=== PATIENT | female | born 1945 | race Asian ===

== ENCOUNTER 2019-01-06 07:00 | Day surgery (SDC) | payer OTHER ==
[2019-01-05 09:07] VITALS: BMI 19.7
[2019-01-06 09:04] VITALS: TEMP 97.8
[2019-01-06 09:32] VITALS: PULSE 60
[2019-01-06 09:51] VITALS: BP 118/48
--- NOTE | 2019-01-09 17:21 | PATH ---
Surgical Pathology Report Patient Name: JUDD CHAVEZ [facility]. Rec. #: [id number] /Age/Gender: 1945 (Age: 73) / F Account: [id number] Location: U-ENDOSCOPY Taken: 01/06/2019 Received: 01/06/2019 Reported: 01/09/2019 Physicians: Apollo Steele M.D. Specimen(s) Received A: DUODENUM, SECOND PORTION AND BULB B: ANTRUM C: GE JUNCTION D: ASCENDING COLON POLYP E: MID-TRASNVERSE COLON POLYP Clinical History Early satiety, change in bowel habits Postoperative diagnosis: Erosive antral gastritis, colon polyp, diverticulosis Final Diagnosis A. DUODENUM, SECOND PORTION AND BULB, BIOPSY: DUODENAL MUCOSA WITHOUT SIGNIFICANT PATHOLOGIC FINDINGS. B. STOMACH, ANTRUM, BIOPSY: GASTRIC ANTRAL MUCOSA WITH MILD CHRONIC GASTRITIS. IMMUNOHISTOCHEMICAL STAIN FOR H. PYLORI IS NEGATIVE. C. GE JUNCTION, BIOPSY: SQUAMOCOLUMNAR MUCOSA WITH MODERATE ACUTE AND CHRONIC INFLAMMATION AND CHANGES OF MODERATE REFLUX ESOPHAGITIS. NO INTESTINAL METAPLASIA OR DYSPLASIA IDENTIFIED. D. ASCENDING COLON, POLYP, BIOPSY: SESSILE SERRATED POLYP E. MID TRANSVERSE COLON, POLYP, BIOPSY: HYPERPLASTIC POLYP. Electronically Signed Radha Park M.D. Gross Description A. Received in formalin, labeled "second portion and bulb of duodenum" are 5 castro, irregular portions of soft tissue ranging from 0.2-0.4 cm. in greatest dimension. The specimens are submitted in toto in one cassette. B. Received in formalin, labeled "antrum biopsy" are 3 castro, irregular portions of soft tissue ranging from 0.2-0.3 cm. in greatest dimension. The specimens are submitted in toto in one cassette. C. Received in formalin, labeled "GE junction biopsy" are 2 castro, irregular portions of soft tissue averaging 0.4 cm. in greatest dimension. The specimens are submitted in toto in one cassette. D. Received in formalin, labeled "ascending colon polyp biopsy" are 5 castro, irregular portions of soft tissue ranging from 0.1-0.3 cm. in greatest dimension. The specimens are submitted in toto in one cassette. E. Received in formalin, labeled "mid transverse colon polyp" is a castro, irregular portion of soft tissue measuring 0.3 cm. in greatest dimension. The specimen is submitted in toto in one cassette. DL01/06/2019 saudi01/06/2019
== END 2019-01-06 10:27 | disposition home or self-care (01) ==
LOC: JASU-ENDO 07:00
PROVIDERS: ATTEND Internal Medicine Gastroenterology
PROC: 0DBL8ZX Excision of Transverse Colon, Via Natural or Artificial Opening Endoscopic, Diagnostic (ICD-10-PCS; 2019-01-06)
PROC: 0DB48ZX Excision of Esophagogastric Junction, Via Natural or Artificial Opening Endoscopic, Diagnostic (ICD-10-PCS; 2019-01-06)
PROC: 0DB68ZX Excision of Stomach, Via Natural or Artificial Opening Endoscopic, Diagnostic (ICD-10-PCS; 2019-01-06)
PROC: 0DBK8ZX Excision of Ascending Colon, Via Natural or Artificial Opening Endoscopic, Diagnostic (ICD-10-PCS; principal; 2019-01-06 08:00)
DX: K29.00 Acute gastritis without bleeding (principal); D12.2 Benign neoplasm of ascending colon; D12.3 Benign neoplasm of transverse colon; K64.8 Other hemorrhoids; K57.30 Diverticulosis of large intestine without perforation or abscess without bleeding; K44.9 Diaphragmatic hernia without obstruction or gangrene; I10 Essential (primary) hypertension; E11.9 Type 2 diabetes mellitus without complications; G20 Parkinson's disease
CPT/HCPCS: 82962; 88305-TC; 88342-TC

== ENCOUNTER 2019-04-07 17:27 | Inpatient (IN) | payer OTHER ==
--- NOTE | 2019-04-07 17:38 | PDOC ---
Rapid Medical Evaluation Chief Complaint: Blood Pressure Problem Time Seen by Provider: 04/07/19 17:35 Medical Evaluation: Allergies Allergy/AdvReac Type Severity Reaction Status Date / Time No Known Allergies Allergy Verified 01/05/19 09:08 04/07/19 17:36 73 year old female with headache, dizziness and high blood pressure. Dr. Trejo ( cardiology) PCP : Dr. ackerman A: high blood pressure P; none PMHX: irregular heart rate; hypertension Discharge Disposition - Diagnosis High blood pressure Qualifiers: Hypertension type: unspecified Qualified Code(s): I10 - Essential (primary) hypertension - Referrals - Patient Instructions - Post Discharge Activity
[2019-04-07] MEDS ORDERED: LABETALOL HCL 5 MG/1 ML (100MG/20 ML VIAL) IVPUSH ONE (18:33)
--- NOTE | 2019-04-07 18:43 | PDOC ---
History of Present Illness - General Chief Complaint: Blood Pressure Problem Stated Complaint: HBP Time Seen by Provider: 04/07/19 17:35 History Source: Patient, Old Records Exam Limitations: No Limitations - History of Present Illness Initial Comments: 04/07/19 18:39 HISTORY OF PRESENT ILLNESS: 73-year-old woman with past medical history of hypertension, diabetes, glaucoma, Parkinson's, A. fib (not on AC) who presents emergency department for evaluation of elevated blood pressure, headache and chest pressure. Patient reports her elevated blood pressure is an ongoing issue for which she saw her risk tech on 04/01 was recommended to take metoprolol 25 mg orally as needed for elevated blood pressure. Patient has been having the symptoms in her chest since evaluated by her risk tech. She reports the headache started today. Patient reports a poorly localized headache rated 6/10 throughout the day today. She denies any blurry vision, nausea, vomiting, shortness of breath. Patient does have intermittent episodes of lightheadedness. She denies fevers/chills. No recent travel or sick contacts. PAST MEDICAL HISTORY: See HPI SURGICAL HISTORY: Denies ALLERGIES: No known drug allergies REVIEW OF SYSTEMS General/Constitutional: Denies fever or chills. Denies weakness, weight change. HEENT: Denies change in vision. Denies ear pain or discharge. Denies sore throat. Cardiovascular: See HPI Respiratory: Denies cough, wheezing, or hemoptysis. Gastrointestinal: Denies nausea, vomiting, diarrhea or constipation. Denies rectal bleeding. Genitourinary: Denies dysuria, frequency, or change in urination. Musculoskeletal: Denies joint or muscle swelling or pain. Denies neck or back pain. Skin and breasts: Denies rash or easy bruising. Neurologic: See HPI Psychiatric: Denies depression or anxiety. Endocrine: Denies increased thirst. Denies abnormal weight change. Hematologic/Lymphatic: Denies anemia, easy bleeding, or history of blood clots. Allergic/Immunologic: Denies hives or skin allergy. Denies latex allergy. PHYSICAL EXAM General Appearance: Well-appearing, appropriately dressed. No apparent distress , no intoxication. HEENT: EOMI, PERRLA, normal ENT inspection, normal voice, TMs normal, pharynx normal. No conjunctival pallor. No photophobia, scleral icterus. Neck: Supple. Trachea midline. No tenderness, rigidity, carotid bruit, stridor , lymphadenopathy, or thyromegaly. Respiratory/Chest: Lungs CTAB. No shortness of breath, chest tenderness, respiratory distress, accessory muscle use. No crackles, rales, rhonchi, stridor , wheezing, dullness Cardiovascular: RRR. S1, S2. No JVD, murmur, bradycardia, tachycardia. No pedal edema present. Vascular Pulses: Dorsalis-Pedis (R): 2+, Dorsalis-Pedis (L): 2+ Gastrointestinal/Abdominal: Normal bowel sounds. Abdomen soft, non-distended. No tenderness or rebound tenderness. No organomegaly, pulsatile mass, guarding, hernia, hepatomegaly, splenomegaly. Lymphatic: No adenopathy, tenderness. Musculoskeletal/Extremities: Normal inspection. FROM of all extremities, normal capillary refill. Pelvis Stable. No CVA tenderness. No tenderness to extremities, pedal edema, swelling, erythema or deformity. Integumentary: Appropriate color, dry, warm. No cyanosis, erythema, jaundice or rash Neurologic: entertainment manager II-XII intact. Fully oriented, alert. Appropriate mood/affect. Motor strength 5/5. No appreciable EOM palsy, facial droop or sensory deficit. Past History - Past Medical History Allergies/Adverse Reactions: Allergies Allergy/AdvReac Type Severity Reaction Status Date / Time No Known Allergies Allergy Verified 01/05/19 09:08 Home Medications: Ambulatory Orders Ascorbate Calcium [Vitamin C] 500 mg PO DAILY 01/05/19 Aspirin [Ecotrin] 81 mg PO DAILY 01/05/19 Bimatoprost [Lumigan] 1 drop OD DAILY 01/05/19 Brimonidine Tartrate/Timolol [Combigan 0.2%-0.5% Eye Drops] 5 ml OD BID Calcium Carbonate/Vitamin D3 [Calcium 500 mg-Vit D3 600 Unit] 1,200 mcg PO DAILY 01/05/19 Carbidopa/Levodopa *Cr* 50/200 [Sinemet *Cr* 50/200 -] 1 combo PO QID 01/05/19 Gabapentin [Neurontin -] 300 mg PO HS 01/05/19 Glipizide [Glucotrol -] 5 mg PO TID 01/05/19 Insulin Detemir [Levemir Flextouch] 10 unit SQ HS 01/05/19 Insulin Lispro [Humalog] 100 unit SQ TID 01/05/19 Metoprolol Succinate 25 mg PO PRN 01/05/19 Multivitamin [Multiple Vitamins] 1 each PO DAILY 01/05/19 [place]-3 Fatty Acids/Fish Oil [Fish Oil 1,000 mg Capsule] 1 each PO DAILY Pramipexole Di-HCl [Pramipexole Dihydrochloride] 0.75 mg PO HS 01/05/19 Pravastatin Sodium 10 mg PO HS 01/05/19 metFORMIN HCL [Metformin HCl ER] 500 mg PO BID 01/05/19 Famotidine [Pepcid] 40 mg PO DAILY #30 tablet 01/06/19 Losartan Potassium 50 mg PO DAILY 04/08/19 traZODone HCL [Trazodone HCl] 50 mg PO HS 04/08/19 Metoprolol Succinate 25 mg PO DAILY #60 tab.er.24h 04/10/19 Nitroglycerin Sublingual [Nitrostat -] 0.3 mg SL ONCE #5 btl 04/10/19 Cardiac Disorders: Yes (APC) Diabetes: Yes (IDDM) HTN: Yes Hypercholesterolemia: Yes Thyroid Disease: Yes (THYROIDMEGALY) - Surgical History Neurologic Surgery: Yes (LUMBAR LAMINECTOMY) - Psycho Social/Smoking Cessation Hx Smoking History: Never smoked Have you smoked in the past 12 months: No Hx Alcohol Use: No Drug/Substance Use Hx: No Substance Use Type: None Hx Substance Use Treatment: No *Physical Exam - Vital Signs Last Vital Signs Temp Pulse Resp BP Pulse Ox 97.8 F 92 H 16 199/81 H 100 04/07/19 17:34 04/07/19 17:34 04/07/19 17:34 04/07/19 17:34 04/07/19 17:34 ED Treatment Course - LABORATORY CBC & Chemistry Diagram: 04/10/19 05:55 04/10/19 05:55 - RADIOLOGY Radiology Studies Ordered: Category Date Time Status CHEST PA & LAT [RAD] Stat Radiology 04/07/19 18:33 Ordered Medical Decision Making - Medical Decision Making 04/07/19 18:43 A/P: 73-year-old woman with chest pressure, elevated blood pressure and lightheadedness for 7 days Physical exam is unremarkable. Patient reports she took metoprolol 25 mg at approximately 12:00 noon. Upon arrival patient's blood pressure is 199/81 with a heart rate of 92. Symptoms patient experiencing likely due to elevated blood pressure. Given patient's age and history I will do an EKG with cardiac work-up with one troponin being sufficient if it is negative. Labetalol 10 mg IV push TSH Reassess 04/07/19 21:46 Patient noted to have troponin I 1.25. Additionally patient's beta natruretic peptide 774. Chest x-ray as read by me. Left angle sharp. Cardiac silhouette is within normal limits. Lung martinez clear without infiltrates or consolidations. No significant change from study performed 12/12/2014. Patient continues to report heaviness in her chest but denies any pain. Aspirin 325 mg orally now Guaiac Heparin drip repeat EKG Admission 04/07/19 22:04 04/07/19 22:26 Case has been discussed with Dr. Humphrey from Dr. Trejo's group who recommends admission and will follow here at [facility] tomorrow as a consult. Rec hold Plavix at this time. Case has been discussed with the hospitalist service who will admit patient to medicine and continue to care. And cardiology follow-up in the morning. 04/08/19 01:52 Discharge - Discharge Information Problems reviewed: Yes Clinical Impression/Diagnosis: NSTEMI (non-ST elevated myocardial infarction), Hyponatremia High blood pressure Qualifiers: Hypertension type: unspecified Qualified Code(s): I10 - Essential (primary) hypertension Condition: Improved Disposition: HOME - Admission Yes - Follow up/Referral - Patient Discharge Instructions - Post Discharge Activity
[2019-04-07] MEDS ORDERED: LABETALOL HCL 5 MG/1 ML (200MG/40ML VIAL) IVPB ONE (19:49)
[2019-04-07 20:51] LABS: BASO % 0.3 % (0-2.0); EOS % 0.4 % (0-4.5); HEMATOCRIT 41.9 % (32.4-45.2); HEMOGLOBIN 14.2 GM/dL (10.7-15.3); LYMPH % 24.3 % (8-40); MCH 28.6 pg (25.7-33.7); MCHC 33.8 g/dl (32.0-36.0); MEAN CELL VOLUME 84.7 fl (80-96); MEAN PLT VOLUME 8.4 fl (7.5-11.1); MONO % 6.2 % (3.8-10.2); NEUT % 68.8 % (42.8-82.8); PLATELET COUNT 282 K/MM3 (134-434); RBC 4.94 M/mm3 (3.60-5.2); RDW 13.3 % (11.6-15.6)
[2019-04-07 21:02] LABS: INR 1.08 (0.83-1.09); PROTHROMBIN TIME (PATIENT) 12.7 SEC (9.7-13.0)
[2019-04-07 21:05] LABS: ACTIVATED PTT 34.4 SECONDS (25.2-36.5)
[2019-04-07 21:20] LABS: N-TERMINAL BNP 774.7 pg/ml (5-125)
[2019-04-07 21:24] LABS: ALBUMIN 4.2 g/dl (3.4-5.0); BILIRUBIN,TOTAL 0.5 mg/dL (0.2-1); BLOOD UREA NITROGEN 15.7 mg/dL (7-18); CALCIUM 9.4 mg/dL (8.5-10.1); CREATININE 0.7 mg/dL (0.55-1.3); MAGNESIUM 1.7 mg/dL (1.8-2.4); POTASSIUM 4.3 mmol/L (3.5-5.1); TOT PROT 7.7 g/dl (6.4-8.2)
[2019-04-07] MEDS ORDERED: HEPARIN NA (PORCINE) 5,000 UNITS/ML 1ML VIAL IVPUSH PRN ×2 (21:43)
[2019-04-07] MEDS ORDERED: ASPIRIN 325 MG ENTERIC COATED TABLET (FP) PO ONE (21:43)
[2019-04-07] MEDS ORDERED: HEPARIN NA (PORCINE) 5,000 UNITS/ML 1ML VIAL IVPUSH ONE (21:44)
[2019-04-07] MEDS ORDERED: HEPARIN SOD,PORK IN 0.45% NACL 25,000 UNIT/500 ML INFUS.BAG IVPB SCH (21:45)
[2019-04-07] MEDS ORDERED: HEPARIN NA (PORCINE) 5,000 UNITS/ML 1ML VIAL ONE (22:17)
[2019-04-07] MEDS ORDERED: ASPIRIN 325 MG ENTERIC COATED TABLET (FP) ONE (22:17)
[2019-04-07] MEDS ORDERED: FAMOTIDINE 20 MG TABLET PO ONE (23:30)
[2019-04-07] MEDS ORDERED: FAMOTIDINE 20 MG TABLET ONE (23:37)
[2019-04-07 23:49] LABS: EPI CELLS 0.4 /HPF (0-5/HPF); HYALINE CASTS 0 /lpf (0-8); URINE APPEARANCE CLEAR; URINE BACTERIA 15.3 /hpf (NEGATIVE); URINE BILIRUBIN NEGATIVE (NEGATIVE); URINE COLOR YELLOW; URINE GLUCOSE (UA) 1+ (NEGATIVE); URINE KETONE NEGATIVE (NEGATIVE); URINE LEUK ESTERASE NEGATIVE (NEGATIVE); URINE NITRITE NEGATIVE (NEGATIVE); URINE PROTEIN 1+ (NEGATIVE); URINE RBC 4 /hpf (0-4); URINE UROBILINOGEN 0.2 mg/dL (0.2-1.0); URINE WBC 1 /hpf (0-5)
[2019-04-08] MEDS ORDERED: CLOPIDOGREL BISULFATE 300 MG TABLET PO ONE (00:07)
[2019-04-08] MEDS ORDERED: METOPROLOL TARTRATE 25 MG TABLET (FP) PO ONE (00:09)
[2019-04-08] MEDS: metoPROLOL SUCCINATE 25 MG TAB.SR.24H (FP) PO SCH ×2 (00:28→10:15)
--- NOTE | 2019-04-08 00:29 | HP ---
CHIEF COMPLAINT: Chest tightness, headaches and HTN PCP: Dr. Ryder HISTORY OF PRESENT ILLNESS: 73 y/o F, pmh of hypertension, diabetes, glaucoma, Parkinson's, A. fib (not on AC), GERD, presents to the ED with chest tightness, headaches and elevated BP 199/85 w/ HR of 92. As per pt, she was at home when she began to experience severe, non-radiating chest tightness, headaches and palpitations. She reports that she was with her mutuel department manager (austen Portillo) few days ago who added metoprolol 25 to her medication regime and increased her dose of Losartan to 50mg. She believes the medication changed caused her symptoms. In the ED, she was HTN and her BP was normalized after labetolol 10 mg. Cardiology was consulted and they agreed that pt be admitted and watched overnight. Pt has had recent stress tests but she is unsure of the results. Her ECHO in the past has been normal. She denies f/c/n/v/d/sob, cp, abdominal pain, cough. ER course was notable for: (1)CXR- pending (2)Trop 1.25>1.37 (3)BNP 774.7 Recent Travel: denies PAST MEDICAL HISTORY: hypertension, diabetes, glaucoma, Parkinson's, A. fib (not on AC), GERD, denies [place], strokes PAST SURGICAL HISTORY: denies Social History: Smoking: Denies Alcohol: Denies Drugs: Denies Allergies No Known Allergies Allergy (Verified 01/05/19 09:08) HOME MEDICATIONS: Home Medications Medication Instructions Recorded Ascorbate Calcium [Vitamin C] 500 mg PO DAILY 01/05/19 Aspirin [Ecotrin] 81 mg PO DAILY 01/05/19 Bimatoprost [Lumigan] 1 drop IO DAILY 01/05/19 Brimonidine Tartrate/Timolol 5 ml OP BID 01/05/19 [Combigan 0.2%-0.5% Eye Drops] Calcium Carbonate/Vitamin D3 1 tab PO DAILY 01/05/19 [Calcium 500 mg-Vit D3 600 Unit] Carbidopa/Levodopa *Cr* 50/200 1 combo PO QID 01/05/19 [Sinemet *Cr* 50/200 -] Gabapentin [Neurontin -] 300 mg PO HS 01/05/19 Glipizide [Glucotrol -] 5 mg PO TID 01/05/19 Insulin Detemir [Levemir Flextouch] 100 unit SQ HS 01/05/19 Insulin Lispro [Humalog] 100 unit SQ TID 01/05/19 Metoprolol Succinate 25 mg PO PRN 01/05/19 Multivitamin [Multiple Vitamins] 1 each PO DAILY 01/05/19 [place]-3 Fatty Acids/Fish Oil [Fish 1 each PO DAILY 01/05/19 Oil 1,000 mg Capsule] Polyethylene Glycol 3350 [Miralax 17 gm PO DAILY 01/05/19 119 gm Btl -] Pramipexole Di-HCl [Pramipexole 0.75 mg PO HS 01/05/19 Dihydrochloride] Pravastatin Sodium 10 mg PO HS 01/05/19 metFORMIN HCL [Metformin HCl ER] 500 mg PO BID 01/05/19 Famotidine [Pepcid -] 40 mg PO DAILY #90 tablet 01/06/19 Famotidine [Pepcid] 40 mg PO DAILY #30 tablet 01/06/19 REVIEW OF SYSTEMS CONSTITUTIONAL: Absent: fever, chills, diaphoresis, loss of appetite, weight change HEENT: Absent: rhinorrhea, ear pain, eye pain, visual changes CARDIOVASCULAR: Admits: Chest tightness Absent: chest pain, syncope, palpitations, peripheral edema RESPIRATORY: Absent: cough, shortness of breath, orthopnea, wheezing, stridor, hemoptysis GASTROINTESTINAL: Absent: abdominal pain, nausea, vomiting, diarrhea, constipation, melena, hematochezia GENITOURINARY: Absent: dysuria, frequency, flank pain, genital pain NEUROLOGIC: Absent: headache, focal weakness or paresthesias, dizziness, unsteady gait, seizure, mental status changes, bladder or bowel incontinence PHYSICAL EXAMINATION Vital Signs - 24 hr Last Vital Signs Temp Pulse Resp BP Pulse Ox 97.4 F L 76 15 135/73 100 04/07/19 19:25 04/08/19 00:04 04/08/19 00:04 04/08/19 00:04 04/08/19 00:04 GENERAL: Awake, alert, and fully oriented, in no acute distress. EYES: Pupils equal, round and reactive to light, conjunctiva clear. No lid lag. EARS, NOSE, THROAT: Oropharynx clear without exudates. Moist mucous membranes. NECK: Normal range of motion, supple without lymphadenopathy, JVD, or masses. LUNGS: Breath sounds equal, clear to auscultation bilaterally. No wheezes, and no crackles. HEART: Regular rate and rhythm, normal S1 and S2 without murmur, rub or gallop. ABDOMEN: Soft, nontender, not distended, normoactive bowel sounds, no guarding, no rebound, no masses. UPPER EXTREMITIES: 2+ pulses, No cyanosis. No clubbing. No peripheral edema. LOWER EXTREMITIES: 2+ pulses, No calf tenderness. No peripheral edema. NEUROLOGICAL: Cranial nerves II-XII intact. SKIN: Warm, dry, normal turgor, Laboratory Results - last 24 hr CBC,CMP WBC 13.0 K/mm3 (4.0-10.0) H 04/07/19 20:20 RBC 4.94 M/mm3 (3.60-5.2) 04/07/19 20:20 Hgb 14.2 GM/dL (10.7-15.3) 04/07/19 20:20 Hct 41.9 % (32.4-45.2) 04/07/19 20:20 MCV 84.7 fl (80-96) 04/07/19 20:20 MCH 28.6 pg (25.7-33.7) 04/07/19 20:20 MCHC 33.8 g/dl (32.0-36.0) 04/07/19 20:20 RDW 13.3 % (11.6-15.6) 04/07/19 20:20 Plt Count 282 K/MM3 (134-434) 04/07/19 20:20 MPV 8.4 fl (7.5-11.1) 04/07/19 20:20 Absolute Neuts (auto) 9.0 K/mm3 (1.5-8.0) H 04/07/19 20:20 Neutrophils % 68.8 % (42.8-82.8) 04/07/19 20:20 Lymphocytes % 24.3 % (8-40) 04/07/19 20:20 Monocytes % 6.2 % (3.8-10.2) 04/07/19 20:20 Eosinophils % 0.4 % (0-4.5) 04/07/19 20:20 Basophils % 0.3 % (0-2.0) 04/07/19 20:20 Nucleated RBC % 0 % (0-0) 04/07/19 20:20 Sodium 128 mmol/L (136-145) L 04/07/19 18:33 Potassium 4.3 mmol/L (3.5-5.1) 04/07/19 18:33 Chloride 88 mmol/L (98-107) L 04/07/19 18:33 Carbon Dioxide 29 mmol/L (21-32) 04/07/19 18:33 Anion Gap 11 MMOL/L (8-16) 04/07/19 18:33 BUN 15.7 mg/dL (7-18) 04/07/19 18:33 Creatinine 0.7 mg/dL (0.55-1.3) 04/07/19 18:33 Est GFR (CKD-EPI)AfAm 100.32 04/07/19 18:33 Est GFR (CKD-EPI)NonAf 86.56 04/07/19 18:33 POC Glucometer 211 UNITS (80-120) 04/07/19 20:07 Random Glucose 213 mg/dL (74-106) H 04/07/19 18:33 Calcium 9.4 mg/dL (8.5-10.1) 04/07/19 18:33 Magnesium 1.7 mg/dL (1.8-2.4) L 04/07/19 18:33 Total Bilirubin 0.5 mg/dL (0.2-1) 04/07/19 18:33 AST 23 U/L (15-37) 04/07/19 18:33 ALT 8 U/L (13-61) L 04/07/19 18:33 Alkaline Phosphatase 91 U/L (45-117) 04/07/19 18:33 Creatine Kinase 132 U/L (26-192) 04/07/19 18:33 Troponin I 1.37 ng/ml (0.00-0.05) H* 04/07/19 22:53 B-Natriuretic Peptide 774.7 pg/ml (5-125) H 04/07/19 18:33 Total Protein 7.7 g/dl (6.4-8.2) 04/07/19 18:33 Albumin 4.2 g/dl (3.4-5.0) 04/07/19 18:33 TSH 2.82 uIU/ml (0.358-3.74) 04/07/19 18:33 ASSESSMENT/PLAN: 73 y/o F, pmh of hypertension, diabetes, glaucoma, Parkinson's, A. fib (not on AC), GERD, presents to the ED with chest tightness, headaches and elevated BP 199/85 w/ HR of 92 admitted for chest pain, HTN, and r/u ACS #Atypical chest pain likely 2/2 to heart strain from HTN and A-fib with RVR R/o ACS Trops elevated Trop 1.25>1.37 R/p trops ordered Lipids, TSH EKG: NSR, LAE, no ST changes, no TWI BNP elevated 774.7 likely 2/2 to demand, no signs of CHF Discussed with Cardiology- recom to watch pt overnight till they see pt tomorrow austen Portillo consulted Aspirin 325 given in ED Aspirin 81 daily Plavix 300 once Heparin protocol initiated Lopressor 25mg one dose given Statin #HTN BP normalized Metoprolol succinate 25mg daily Lopressor 25 Labetolol given in ED Losartan 50mg daily #Headaches now resolved IV tylenol #A-fib not on AC rate and rhythm controlled #GERD Pepcid #Parkinsons Carbadopa/levodopa continue- 50/200 7am, 11 am, 3 pm, 7 pm #Neuropathy Gabapentin pramipexole DVT ppx Heparin FEN monitor lytes NPO in case of stress test or cath Dispo: monitor overnight, f/u trops, f/u cardio Visit type - Emergency Visit Emergency Visit: Yes ED Registration Date: 04/07/19 Care time: The patient presented to the Emergency Department on the above date and was hospitalized for further evaluation of their emergent condition. - New Patient This patient is new to me today: Yes Date on this admission: 04/09/19 - Critical Care Critical Care patient: No ATTENDING PHYSICIAN STATEMENT I saw and evaluated the patient. I reviewed the resident's note and discussed the case with the resident. I agree with the resident's findings and plan as documented. SUBJECTIVE: OBJECTIVE: ASSESSMENT AND PLAN:
[2019-04-08] MEDS ORDERED: GABAPENTIN 300 MG CAPSULE PO SCH ×2 (00:47→22:00)
[2019-04-08] MEDS: GABAPENTIN 300 MG CAPSULE PO SCH ×2 (01:30→21:29)
[2019-04-08] MEDS ORDERED: ACETAMINOPHEN 500 MG TABLET (FP) PO ONE (01:44)
--- NOTE | 2019-04-08 02:27 | PN ---
Teaching Attending Note Name of Resident: Parth Schwartz ATTENDING PHYSICIAN STATEMENT I saw and evaluated the patient. I reviewed the resident's note and discussed the case with the resident. I agree with the resident's findings and plan as documented. SUBJECTIVE: 74-year-old woman with a history of hypertension, diabetes, glaucoma, Parkinson' s, atrial fibrillation (not on anticoagulation), restless leg syndrome presents with complaints of headache, chest pressure, elevated blood pressure. Saw her client consultant on 04/01 on 04/01 who started her on metoprolol 25 mg p.o. as needed for her blood pressure. Headache has been ongoing x1 day. Denied any blurry vision or shortness of breath nausea or vomiting. Reports that her chest pressure improves after burping. Reports that she has a lot of gas. OBJECTIVE: Last Vital Signs Temp Pulse Resp BP Pulse Ox 97.3 F L 64 14 141/57 L 100 04/08/19 01:39 04/08/19 01:39 04/08/19 01:39 04/08/19 01:39 04/08/19 01:39 GENERAL: Well developed, well nourished. Awake and alert. No acute distress. HEENT: Normocephalic, atraumatic. PERRLA, EOMI. No conjunctival pallor. Sclera are non- icteric. Moist mucous membranes. Oropharynx is clear. NECK: Supple. Full ROM. No JVD. Carotid pulses 2+ and symmetric, without bruits. No thyromegaly. No lymphadenopathy. CARDIOVASCULAR: Regular rate and rhythm. No murmurs, rubs, or gallops. Distal pulses are 2+ and symmetric. PULMONARY: No evidence of respiratory distress. Lungs clear to auscultation bilaterally. No wheezing, rales or rhonchi. ABDOMINAL: Soft. Non-tender. Non-distended. No rebound or guarding. No organomegaly. Normoactive bowel sounds. MUSCULOSKELETAL Normal range of motion at all joints. No bony deformities or tenderness. No CVA tenderness. EXTREMITIES: No cyanosis. No clubbing. No edema. No calf tenderness. SKIN: Warm and dry. Normal capillary refill. No rashes. No jaundice. PSYCHIATRIC: Cooperative. Good eye contact. Appropriate mood and affect. Abnormal Lab Results 04/07/19 04/07/19 04/07/19 18:33 18:33 20:20 WBC 13.0 H Absolute Neuts (auto) 9.0 H Sodium 128 L Chloride 88 L Random Glucose 213 H Magnesium 1.7 L ALT 8 L Troponin I 1.25 H* B-Natriuretic Peptide 774.7 H Ur Specific [place] Urine Protein Urine Glucose (UA) 04/07/19 04/07/19 22:53 22:53 WBC Absolute Neuts (auto) Sodium Chloride Random Glucose Magnesium ALT Troponin I 1.37 H* B-Natriuretic Peptide Ur Specific [place] 1.009 L Urine Protein 1+ H Urine Glucose (UA) 1+ H Imaging studies reviewed Chest x-ray reviewed, markedly elevated right hemidiaphragm, sharp costophrenic angles bilaterally. ASSESSMENT AND PLAN: 73-year-old woman with chest pressure with elevated troponin suggestive of NSTEMI. Admit to telemetry Trend troponin Continue heparin drip Aspirin 324 mg p.o. stat Plavix 300 mg p.o. stat High-dose statin Beta-edward Transthoracic echo Cardiology consult Pepcid #Leukocytosisno infections identified at this time Trend WBC Observe off antibiotics #Electrolyte derangementshyponatremia, hypochloremia IV fluid hydration with normal saline If nausea or vomiting given Zofran Supplement magnesium Monitor electrolytes closely including phosphate and supplement as needed #Uncontrolled hyperglycemia Trend glucose levels NovoLog sliding scale Basal insulin A1c Diabetic diet #Markedly Elevated right hemidiaphragm on chest x-ray Consider possible phrenic nerve paralysis #Parkinsonism Continue with Sinemet #Restless leg syndrome Continue with pramipexole Continue with Neurontin #DVT prophylaxison heparin drip
[2019-04-08 04:33] VITALS: BMI 24.9
[2019-04-08] MEDS ORDERED: MAG HYDROX/AL HYDROX/SIMETH 30 ML UNIT-DOSE CUP PO ONE ×2 (06:30→21:08)
[2019-04-08] MEDS: INSULIN SLIDING SCALE (NOVOLOG) 1 VIAL SQ SCH ×4 (06:50→21:33)
[2019-04-08 08:34] LABS: ALBUMIN 3.5 g/dl (3.4-5.0); BILIRUBIN,TOTAL 0.6 mg/dL (0.2-1); BLOOD UREA NITROGEN 15.7 mg/dL (7-18); CREATININE 0.7 mg/dL (0.55-1.3); MAGNESIUM 1.7 mg/dL (1.8-2.4); PHOSPHOROUS 3.6 mg/dL (2.5-4.9); POTASSIUM 3.8 mmol/L (3.5-5.1); TOT PROT 6.7 g/dl (6.4-8.2)
--- NOTE | 2019-04-08 08:49 | CONSULT ---
Consult - text type - Consultation Consultation Note: Cardiology (Dr Lima for Dr. Dutta) Patient seen and examined Reason for consult: Chest pains and (+) troponin 73 yo female Known to Dr. Dutta (Cardiology) Has h/o HTN and DM Atrial fibrillation not on AC (unclear reason) Recently seen by Dr. Dutta last week for palpitations and HTN Added Metorpolol and increased Losartan to 100mg Now came to ED after episode of severe palpitations, headache and chest tightness In ED noted BP 200/85mmHg -> given Labatelol 10mg IV Found to have (+) troponin 1.25 -> 1.37 She was started on an IV UFH gtt This AM she feels much improved No further chest pains, palps BP this AM improved Meds reviewed All: NKDA Soc Hx: No tobacco/EtOH, Fam Hx: NC PE: VS: BP 134/57mmHg, P 57/min No distress, comfortable JVP normal Regular rate, no murmurs Lungs are clear bilaterally Abd soft, non-tender No LE edema ECG: on 04/07/2019 at 19:27 NSR with LAD and non-specific ST changes Echo: 11/2018 Normal biventricular size and function, moderate TE and RVSP 42mmHg Stress Echo 09/2015 Colin Stage 2, 6 mins achieved 94% MPHR. No ischemia noted no imaging Labs: Na 129, Creat 0.7, BNP 774 Troponin 1.25 -> 1.37 Impression/Plan: 1) (+) troponin -Flat trend and now down trending -No active chest pain this AM -Had normal stress echo in 09/2015 -Etiology likely a Type II TX in the setting of Hypertensive state and not ACS -Would d/c IV UFH -Continue Asa and pravachol -Continue Metoprolol -Continue to monitor on tele 2) HTN -Better controlled this AM -Continue meoprolol and losartan at 50mg daily -Monitor 3) DM -Managemetn as per PMD 4) Afib -In NSR now -Continue tele -Elevated [id number] but will defer to primary art therapist (Dr. Dutta) for anticoagulation decision.
--- NOTE | 2019-04-08 09:25 | PN ---
Physical Exam: SUBJECTIVE: Patient seen and examined. patient admitted for chest tightness, hypertension and elevated troponins. She is currently comfortable at rest and denies any further chest pain. She reports that she monitors her BP at home and at times she is hypotensive. OBJECTIVE: Patient is a 73 year old female with a significant past medical hisotory of hypertension, diabetes, glaucoma, parkinson's, a.fib (not on AC), GERD. She presents to the ED on 04/07/2019 with symptom of chest tightness, headaches and elevated BP 199/85. At home she experienced severe, non-radiating chest tightness, headaches and palpitations, which are now resolved. She follows with Dr. Trejo. She had elevated troponins and placed on a heparin drip, heparin drip now discontinued. Vital Signs Period Temp Pulse Resp BP Sys/Milton Pulse Ox Last 24 Hr 97.3 F-98.7 F 60-92 13-18 130-199/54-84 96-100 GENERAL: The patient is awake, alert, and fully oriented, in no acute distress. HEAD: Normal with no signs of trauma. EYES: PERRL, extraocular movements intact, sclera anicteric, conjunctiva clear. No ptosis. ENT: Ears normal, nares patent, oropharynx clear without exudates, moist mucous membranes. NECK: Trachea midline, full range of motion, supple. LUNGS: Breath sounds equal, clear to auscultation bilaterally HEART: Regular rate and rhythm ABDOMEN: Soft, nontender, nondistended, normoactive bowel sounds, no guarding EXTREMITIES: no edema. NEUROLOGICAL: Normal speech, gait not observed. PSYCH: Normal mood, normal affect. SKIN: Warm, dry, normal turgor, no rashes or lesions noted Laboratory Results - last 24 hr 04/07/19 04/07/19 04/07/19 18:33 18:33 20:07 WBC RBC Hgb Hct MCV MCH MCHC RDW Plt Count MPV Absolute Neuts (auto) Neutrophils % Lymphocytes % Monocytes % Eosinophils % Basophils % Nucleated RBC % PT with INR INR PTT (Actin FS) Sodium 128 L Potassium 4.3 Chloride 88 L Carbon Dioxide 29 Anion Gap 11 BUN 15.7 Creatinine 0.7 Est GFR (CKD-EPI)AfAm 100.32 Est GFR (CKD-EPI)NonAf 86.56 POC Glucometer 211 Random Glucose 213 H Hemoglobin A1c % Calcium 9.4 Phosphorus Magnesium 1.7 L Total Bilirubin 0.5 AST 23 ALT 8 L Alkaline Phosphatase 91 Creatine Kinase 132 Troponin I 1.25 H* B-Natriuretic Peptide 774.7 H Total Protein 7.7 Albumin 4.2 Triglycerides Cholesterol Total LDL Cholesterol HDL Cholesterol TSH 2.82 Urine Color Urine Appearance Urine pH Ur Specific [place] Urine Protein Urine Glucose (UA) Urine Ketones Urine Blood Urine Nitrite Urine Bilirubin Urine Urobilinogen Ur Leukocyte Esterase Urine WBC (Auto) Urine RBC (Auto) Urine Casts (Auto) U Epithel Cells (Auto) Urine Bacteria (Auto) Stool Occult Blood 04/07/19 04/07/19 04/07/19 20:20 20:20 21:00 WBC 13.0 H RBC 4.94 Hgb 14.2 Hct 41.9 MCV 84.7 MCH 28.6 MCHC 33.8 RDW 13.3 Plt Count 282 MPV 8.4 Absolute Neuts (auto) 9.0 H Neutrophils % 68.8 Lymphocytes % 24.3 Monocytes % 6.2 Eosinophils % 0.4 Basophils % 0.3 Nucleated RBC % 0 PT with INR 12.70 INR 1.08 PTT (Actin FS) 34.4 Sodium Potassium Chloride Carbon Dioxide Anion Gap BUN Creatinine Est GFR (CKD-EPI)AfAm Est GFR (CKD-EPI)NonAf POC Glucometer Random Glucose Hemoglobin A1c % Calcium Phosphorus Magnesium Total Bilirubin AST ALT Alkaline Phosphatase Creatine Kinase Troponin I B-Natriuretic Peptide Total Protein Albumin Triglycerides Cholesterol Total LDL Cholesterol HDL Cholesterol TSH Urine Color Urine Appearance Urine pH Ur Specific [place] Urine Protein Urine Glucose (UA) Urine Ketones Urine Blood Urine Nitrite Urine Bilirubin Urine Urobilinogen Ur Leukocyte Esterase Urine WBC (Auto) Urine RBC (Auto) Urine Casts (Auto) U Epithel Cells (Auto) Urine Bacteria (Auto) Stool Occult Blood Negative 04/07/19 04/07/19 04/08/19 22:53 22:53 02:53 WBC RBC Hgb Hct MCV MCH MCHC RDW Plt Count MPV Absolute Neuts (auto) Neutrophils % Lymphocytes % Monocytes % Eosinophils % Basophils % Nucleated RBC % PT with INR INR PTT (Actin FS) Sodium Potassium Chloride Carbon Dioxide Anion Gap BUN Creatinine Est GFR (CKD-EPI)AfAm Est GFR (CKD-EPI)NonAf POC Glucometer Random Glucose Hemoglobin A1c % Calcium Phosphorus Magnesium Total Bilirubin AST ALT Alkaline Phosphatase Creatine Kinase Troponin I 1.37 H* 1.30 H* B-Natriuretic Peptide Total Protein Albumin Triglycerides Cholesterol Total LDL Cholesterol HDL Cholesterol TSH Urine Color Yellow Urine Appearance Clear Urine pH 6.0 Ur Specific [place] 1.009 L Urine Protein 1+ H Urine Glucose (UA) 1+ H Urine Ketones Negative Urine Blood Negative Urine Nitrite Negative Urine Bilirubin Negative Urine Urobilinogen 0.2 Ur Leukocyte Esterase Negative Urine WBC (Auto) 1 Urine RBC (Auto) 4 Urine Casts (Auto) 0 U Epithel Cells (Auto) 0.4 Urine Bacteria (Auto) 15.3 Stool Occult Blood 04/08/19 04/08/19 04/08/19 05:40 05:42 05:42 WBC RBC Hgb Hct MCV MCH MCHC RDW Plt Count MPV Absolute Neuts (auto) Neutrophils % Lymphocytes % Monocytes % Eosinophils % Basophils % Nucleated RBC % PT with INR INR PTT (Actin FS) Sodium 129 L Potassium 3.8 Chloride 92 L Carbon Dioxide 28 Anion Gap 9 BUN 15.7 Creatinine 0.7 Est GFR (CKD-EPI)AfAm 100.32 Est GFR (CKD-EPI)NonAf 86.56 POC Glucometer 155 Random Glucose 153 H Hemoglobin A1c % 7.2 H Calcium 9.0 Phosphorus 3.6 Magnesium 1.7 L Total Bilirubin 0.6 AST 22 ALT 19 Alkaline Phosphatase 73 Creatine Kinase Troponin I B-Natriuretic Peptide Total Protein 6.7 Albumin 3.5 Triglycerides 52 Cholesterol 185 Total LDL Cholesterol 61 HDL Cholesterol 117 H TSH 2.55 Urine Color Urine Appearance Urine pH Ur Specific [place] Urine Protein Urine Glucose (UA) Urine Ketones Urine Blood Urine Nitrite Urine Bilirubin Urine Urobilinogen Ur Leukocyte Esterase Urine WBC (Auto) Urine RBC (Auto) Urine Casts (Auto) U Epithel Cells (Auto) Urine Bacteria (Auto) Stool Occult Blood 04/08/19 04/08/19 05:42 05:42 WBC RBC Hgb Hct MCV MCH MCHC RDW Plt Count MPV Absolute Neuts (auto) Neutrophils % Lymphocytes % Monocytes % Eosinophils % Basophils % Nucleated RBC % PT with INR INR PTT (Actin FS) > 400.0 H Sodium Potassium Chloride Carbon Dioxide Anion Gap BUN Creatinine Est GFR (CKD-EPI)AfAm Est GFR (CKD-EPI)NonAf POC Glucometer Random Glucose Hemoglobin A1c % Calcium Phosphorus Magnesium Total Bilirubin AST ALT Alkaline Phosphatase Creatine Kinase Troponin I 1.11 H* B-Natriuretic Peptide Total Protein Albumin Triglycerides Cholesterol Total LDL Cholesterol HDL Cholesterol TSH Urine Color Urine Appearance Urine pH Ur Specific [place] Urine Protein Urine Glucose (UA) Urine Ketones Urine Blood Urine Nitrite Urine Bilirubin Urine Urobilinogen Ur Leukocyte Esterase Urine WBC (Auto) Urine RBC (Auto) Urine Casts (Auto) U Epithel Cells (Auto) Urine Bacteria (Auto) Stool Occult Blood Active Medications Generic Name Dose Route Start Last Admin Trade Name Freq PRN Reason Stop Dose Admin Aspirin 81 mg 04/08/19 10:00 Ecotrin - PO DAILY [facility] Atorvastatin Calcium 40 mg 04/08/19 00:47 Lipitor - PO HS [facility] Carbidopa/Levodopa 1 combo 04/08/19 10:00 Sinemet *Cr* 50/200 - PO QID [facility] Gabapentin 300 mg 04/08/19 01:15 04/08/19 01:30 Neurontin - PO 300 mg HS [facility] Administration Heparin Sodium (Porcine) 1,000 unit 04/07/19 21:43 Heparin - IVPUSH PRN PRN Heparin Heparin Sodium (Porcine) 5,000 unit 04/07/19 21:43 Heparin - IVPUSH PRN PRN Heparin HEPARIN SOD,PORK IN 0.45% NACL 25,000 unit in 500 mls @ 16 mls/hr 04/07/19 21: 45 04/07/19 23:17 Heparin-1/2ns 25,000 Units/500 IVPB 800 units/hr TITR [facility] 16 mls/hr Administration Protocol 800 UNITS/HR Insulin Aspart 1 vial 04/08/19 07:00 04/08/19 06:50 Novolog Vial Sliding Scale - SQ Not Given ACHS [facility] Protocol Losartan Potassium 50 mg 04/08/19 10:00 Cozaar - PO DAILY [facility] Metoprolol Succinate 25 mg 04/07/19 23:45 04/08/19 00:28 Toprol Xl - PO Not Given DAILY [facility] Pramipexole Dihydrochloride 0.75 mg 04/08/19 22:00 Mirapex - PO [facility] ASSESSMENT/PLAN: Problem List - Problems (1) Troponin I above reference range Assessment/Plan: Troponins flat trending, no chest pain or shortness of breath on exam. tolerating room air per cardiology, stop heparin gtt, and continue asa, pravachol. Continue metoprolol and continue to monitor on tele Code(s): R79.89 - OTHER SPECIFIED ABNORMAL FINDINGS OF BLOOD CHEMISTRY (2) High blood pressure Assessment/Plan: improving, on toprol and losartan 50 monitor q 4 Code(s): I10 - ESSENTIAL (PRIMARY) HYPERTENSION Qualifiers: Hypertension type: unspecified Qualified Code(s): I10 - Essential (primary ) hypertension (3) Hyponatremia Assessment/Plan: start on ivf and monitor cmp Code(s): E87.1 - HYPO-OSMOLALITY AND HYPONATREMIA (4) NSTEMI (non-ST elevated myocardial infarction) Assessment/Plan: per cards elevated trops likely secondary to hypertensive state Code(s): I21.4 - NON-ST ELEVATION (NSTEMI) MYOCARDIAL INFARCTION (5) Parkinsons disease Assessment/Plan: on sinemet,follows with dr Junior. Ambulates with cane at home Code(s): G20 - PARKINSON'S DISEASE (6) Diabetes Assessment/Plan: on novolog ss Code(s): E11.9 - TYPE 2 DIABETES MELLITUS WITHOUT COMPLICATIONS (7) Prophylactic measure Assessment/Plan: fen tolerating po monitor electrolytes full code heparin bid Code(s): Z29.9 - ENCOUNTER FOR PROPHYLACTIC MEASURES, UNSPECIFIED Visit type - Emergency Visit Emergency Visit: Yes ED Registration Date: 04/07/19 Care time: The patient presented to the Emergency Department on the above date and was hospitalized for further evaluation of their emergent condition. - New Patient This patient is new to me today: Yes Date on this admission: 04/08/19 - Critical Care Critical Care patient: No - Discharge Referral Referred to [facility] Med P.C.: No
[2019-04-08] MEDS ORDERED: ACETAMINOPHEN 325 MG TABLET (FP) PO PRN (09:35)
[2019-04-08] MEDS ORDERED: SODIUM CHLORIDE 1,000 ML IV SCH (09:45)
[2019-04-08] MEDS: ACETAMINOPHEN 325 MG TABLET (FP) PO PRN ×2 (10:13→16:14)
[2019-04-08] MEDS: ASPIRIN COATED 81 MG TABLET.EC PO SCH (10:15)
[2019-04-08] MEDS: LOSARTAN POTASSIUM 50 MG TABLET (FP) PO SCH (10:15)
--- NOTE | 2019-04-08 14:29 | EKG ---
Test Reason : Blood Pressure : / mmHG Vent. Rate : 075 BPM Atrial Rate : 075 BPM P-R Int : 158 ms QRS Dur : 090 ms QT Int : 416 ms P-R-T Axes : 065 001 068 degrees QTc Int : 464 ms NORMAL SINUS RHYTHM POSSIBLE LEFT ATRIAL ENLARGEMENT BORDERLINE ECG Confirmed by MD KEILA, GAUDENCIO ([id number]) on 04/08/2019 2:29:48 PM Referred By: Confirmed By:GAUDENCIO PEDRAZA MD
--- NOTE | 2019-04-08 14:31 | EKG ---
Test Reason : Blood Pressure : / mmHG Vent. Rate : 093 BPM Atrial Rate : 093 BPM P-R Int : 156 ms QRS Dur : 080 ms QT Int : 376 ms P-R-T Axes : 062 000 044 degrees QTc Int : 467 ms POOR DATA QUALITY, INTERPRETATION MAY BE ADVERSELY AFFECTED NORMAL SINUS RHYTHM POSSIBLE LEFT ATRIAL ENLARGEMENT NONSPECIFIC ST ABNORMALITY ABNORMAL ECG Confirmed by MD KEILA, GAUDENCIO ([id number]) on 04/08/2019 2:30:45 PM Referred By: Confirmed By:GAUDENCIO PEDRAZA MD
[2019-04-08] MEDS: FAMOTIDINE 20 MG TABLET PO SCH (21:26)
[2019-04-08] MEDS: HEPARIN NA (PORCINE) 5,000 UNITS/ML 1ML VIAL SQ SCH (21:26)
[2019-04-08] MEDS: ATORVASTATIN CA 40 MG TABLET (FP) PO SCH (21:27)
[2019-04-08] MEDS: PRAMIPEXOLE DIHYDROCHLORIDE 0.25 MG TABLET PO SCH (21:28)
[2019-04-08 21:42] LABS: ALBUMIN 3.8 g/dl (3.4-5.0); BILIRUBIN,TOTAL 0.4 mg/dL (0.2-1); BLOOD UREA NITROGEN 23.2 mg/dL (7-18); CALCIUM 8.8 mg/dL (8.5-10.1); CREATININE 0.9 mg/dL (0.55-1.3); POTASSIUM 4.5 mmol/L (3.5-5.1)
[2019-04-08] MEDS ORDERED: ATORVASTATIN CA 10 MG TABLET (FP) PO SCH (22:00)
[2019-04-08] MEDS ORDERED: ATORVASTATIN CA 40 MG TABLET (FP) PO SCH (22:00)
[2019-04-09] MEDS: INSULIN SLIDING SCALE (NOVOLOG) 1 VIAL SQ SCH ×4 (06:27→21:42)
[2019-04-09 07:03] LABS: HEMATOCRIT 38.7 % (32.4-45.2); HEMOGLOBIN 13.2 GM/dL (10.7-15.3); MCH 28.7 pg (25.7-33.7); MEAN CELL VOLUME 84.3 fl (80-96); MEAN PLT VOLUME 8.3 fl (7.5-11.1); PLATELET COUNT 243 K/MM3 (134-434); RBC 4.59 M/mm3 (3.60-5.2); RDW 13.3 % (11.6-15.6); WHITE BLOOD COUNT 6.8 K/mm3 (4.0-10.0)
[2019-04-09] MEDS ORDERED: INSULIN (NOVOLOG) ASPART 100 UNITS/ML 10ML VIAL ONE ×2 (09:38→17:42)
[2019-04-09] MEDS ORDERED: INSULIN (LEVEMIR) 100 UNITS/ML UNITS SQ ONE (09:38)
[2019-04-09] MEDS ORDERED: PT OWN MED DRAWER 7, Y5N ONE (09:39)
--- NOTE | 2019-04-09 09:41 | PN ---
Progress Note, Physician History of Present Illness: Episode of gas with belching last evening No chest pain this AM Tele: NSR - Current Medication List Current Medications: Active Medications Acetaminophen (Tylenol -) 650 mg PO Q6H PRN PRN Reason: HEADACHE Last Admin: 04/08/19 16:14 Dose: 650 mg Aspirin (Ecotrin -) 81 mg PO DAILY [facility] Last Admin: 04/08/19 10:15 Dose: 81 mg Atorvastatin Calcium (Lipitor -) 40 mg PO [facility] Last Admin: 04/08/19 21:27 Dose: 40 mg Carbidopa/Levodopa (Sinemet *Cr* 50/200 -) 1 combo PO 0700,1100,1500,1900 [facility] Last Admin: 04/09/19 06:27 Dose: 1 combo Famotidine (Pepcid -) 20 mg PO DAILY [facility] Last Admin: 04/08/19 21:26 Dose: 20 mg Gabapentin (Neurontin -) 300 mg PO HS [facility] Last Admin: 04/08/19 21:29 Dose: 300 mg Heparin Sodium (Porcine) (Heparin -) 5,000 unit SQ BID [facility] Last Admin: 04/08/19 21:26 Dose: 5,000 unit Sodium Chloride (Normal Saline -) 1,000 mls @ 75 mls/hr IV ASDIR [facility] Last Admin: 04/08/19 10:15 Dose: 75 mls/hr Insulin Aspart (Novolog Vial Sliding Scale -) 1 vial SQ ACHS [facility]; Protocol Last Admin: 04/09/19 06:27 Dose: 2 units Losartan Potassium (Cozaar -) 50 mg PO DAILY [facility] Last Admin: 04/08/19 10:15 Dose: 50 mg Metoprolol Succinate (Toprol Xl -) 25 mg PO DAILY [facility] Last Admin: 04/08/19 10:15 Dose: 25 mg Pramipexole Dihydrochloride (Mirapex -) 0.75 mg PO [facility] Last Admin: 04/08/19 21:28 Dose: 0.75 mg - Objective Vital Signs: Vital Signs Temperature 97.6 F 04/09/19 06:00 Pulse Rate 66 04/09/19 06:00 Respiratory Rate 20 04/09/19 06:00 Blood Pressure 145/88 04/09/19 06:00 O2 Sat by Pulse Oximetry (%) 98 04/08/19 21:00 Constitutional: Yes: No Distress, Calm Cardiovascular: Yes: Regular Rate and Rhythm Respiratory: Yes: CTA Bilaterally Edema: No Labs: CBC, BMP 04/09/19 06:13 04/08/19 20:16 INR, PTT INR 1.08 (0.83-1.09) 04/07/19 20:20 Assessment/Plan 1) (+) troponin -Flat trend and now down trending -No active chest pain this AM but belching last night ?GI -Had normal stress echo in 09/2015 -Etiology likely a Type II CT in the setting of Hypertensive state and not ACS -Would proceed with further cardiac risk stratification with pharmacological stress MPI in AM -Continue Asa and pravachol -Continue Metoprolol -Continue to monitor on tele 2) HTN -Better controlled this AM -Continue meoprolol and losartan at 50mg daily -Monitor 3) DM -Management as per PMD 4) Afib -In NSR now -Continue tele -Elevated [id number] but will defer to primary denture model maker (Dr. Dutta) for anticoagulation decision.
[2019-04-09] MEDS: ASPIRIN COATED 81 MG TABLET.EC PO SCH (10:11)
[2019-04-09] MEDS: FAMOTIDINE 20 MG TABLET PO SCH (10:12)
[2019-04-09] MEDS: LOSARTAN POTASSIUM 50 MG TABLET (FP) PO SCH (10:12)
[2019-04-09] MEDS: metoPROLOL SUCCINATE 25 MG TAB.SR.24H (FP) PO SCH (10:12)
[2019-04-09] MEDS: HEPARIN NA (PORCINE) 5,000 UNITS/ML 1ML VIAL SQ SCH ×2 (10:13→21:36)
--- NOTE | 2019-04-09 12:16 | PN ---
Physical Exam: SUBJECTIVE: Patient seen and examined, comfortable at rest and denies any chest pain. OBJECTIVE: check glucose q4 after midnight for stress test in a.m. npo after midnight hyponatremia @ 127 --- OBJECTIVE: Patient is a 73 year old female with a significant past medical history of hypertension, diabetes, glaucoma, parkinson's, a.fib (not on AC), GERD. She presents to the ED on 04/07/2019 with symptom of chest tightness, headaches and elevated BP 199/85. At home she experienced severe, non-radiating chest tightness, headaches and palpitations, which are now resolved. She follows with Dr. Trejo. She had elevated troponins and placed on a heparin drip, heparin drip now discontinued. patient admitted for chest tightness, hypertension and elevated troponins. She is currently comfortable at rest and denies any further chest pain. She reports that she monitors her BP at home and at times she is hypotensive. Period Temp Pulse Resp BP Sys/Milton Pulse Ox Last 24 Hr 97.4 F-99.3 F 51-100 20-20 114-164/47-88 98 GENERAL: The patient is awake, alert, and fully oriented, in no acute distress. HEAD: Normal with no signs of trauma. EYES: PERRL, extraocular movements intact, sclera anicteric, conjunctiva clear. No ptosis. ENT: Ears normal, nares patent, oropharynx clear without exudates, moist mucous membranes. NECK: Trachea midline, full range of motion, supple. LUNGS: Breath sounds equal, clear to auscultation bilaterally HEART: Regular rate and rhythm ABDOMEN: Soft, nontender, nondistended, normoactive bowel sounds, no guarding EXTREMITIES: no edema. NEUROLOGICAL: Normal speech, gait not observed. PSYCH: Normal mood, normal affect. SKIN: Warm, dry, normal turgor, no rashes or lesions noted Laboratory Results - last 24 hr 04/08/19 04/08/19 04/08/19 10:30 12:14 17:47 WBC RBC Hgb Hct MCV MCH MCHC RDW Plt Count MPV PTT (Actin FS) > 400.0 H Sodium Potassium Chloride Carbon Dioxide Anion Gap BUN Creatinine Est GFR (CKD-EPI)AfAm Est GFR (CKD-EPI)NonAf POC Glucometer 168 156 Random Glucose Calcium Total Bilirubin AST ALT Alkaline Phosphatase Total Protein Albumin 04/08/19 04/08/19 04/09/19 20:16 21:32 05:59 WBC RBC Hgb Hct MCV MCH MCHC RDW Plt Count MPV PTT (Actin FS) Sodium 127 L Potassium 4.5 Chloride 91 L Carbon Dioxide 29 Anion Gap 8 BUN 23.2 H Creatinine 0.9 Est GFR (CKD-EPI)AfAm 74.04 Est GFR (CKD-EPI)NonAf 63.88 POC Glucometer 193 151 Random Glucose 202 H Calcium 8.8 Total Bilirubin 0.4 AST 19 ALT 9 L Alkaline Phosphatase 95 Total Protein 7.0 Albumin 3.8 04/09/19 04/09/19 04/09/19 06:13 06:13 12:01 WBC 6.8 RBC 4.59 Hgb 13.2 Hct 38.7 MCV 84.3 MCH 28.7 MCHC 34.0 RDW 13.3 Plt Count 243 MPV 8.3 PTT (Actin FS) 33.0 Sodium Potassium Chloride Carbon Dioxide Anion Gap BUN Creatinine Est GFR (CKD-EPI)AfAm Est GFR (CKD-EPI)NonAf POC Glucometer 247 Random Glucose Calcium Total Bilirubin AST ALT Alkaline Phosphatase Total Protein Albumin Active Medications Generic Name Dose Route Start Last Admin Trade Name Freq PRN Reason Stop Dose Admin Acetaminophen 650 mg 04/08/19 09:54 04/08/19 16:14 Tylenol - PO 650 mg Q6H PRN Administration HEADACHE Aspirin 81 mg 04/08/19 10:00 04/09/19 10:11 Ecotrin - PO 81 mg DAILY [facility] Administration Atorvastatin Calcium 40 mg 04/08/19 00:47 04/08/19 21:27 Lipitor - PO 40 mg HS [facility] Administration Carbidopa/Levodopa 1 combo 04/09/19 07:00 04/09/19 11:25 Sinemet *Cr* 50/200 - PO 1 combo 0700,1100,1500,1900 [facility] Administration Famotidine 20 mg 04/08/19 21:30 04/09/19 10:12 Pepcid - PO 20 mg DAILY [facility] Administration Gabapentin 300 mg 04/08/19 01:15 04/08/19 21:29 Neurontin - PO 300 mg HS [facility] Administration Heparin Sodium (Porcine) 5,000 unit 04/08/19 22:00 04/09/19 10:13 Heparin - SQ 5,000 unit BID [facility] Administration Sodium Chloride 1,000 mls @ 75 mls/hr 04/08/19 09:45 04/08/19 10:15 Normal Saline - IV 75 mls/hr ASDIR [facility] Administration Insulin Aspart 1 vial 04/08/19 07:00 04/09/19 12:08 Novolog Vial Sliding Scale - SQ 4 units ACHS [facility] Administration Protocol Losartan Potassium 50 mg 04/08/19 10:00 04/09/19 10:12 Cozaar - PO 50 mg DAILY [facility] Administration Metoprolol Succinate 25 mg 04/07/19 23:45 04/09/19 10:12 Toprol Xl - PO 25 mg DAILY [facility] Administration Pramipexole Dihydrochloride 0.75 mg 04/08/19 22:00 04/08/19 21:28 Mirapex - PO 0.75 mg HS [facility] Administration ASSESSMENT/PLAN: Problem List - Problems (1) Troponin I above reference range Assessment/Plan: Troponins flat trending, no chest pain or shortness of breath on exam. tolerating room air per cardiology, stop heparin gtt, and continue asa, pravachol. Continue metoprolol and continue to monitor on tele Code(s): R79.89 - OTHER SPECIFIED ABNORMAL FINDINGS OF BLOOD CHEMISTRY (2) High blood pressure Assessment/Plan: improving, on toprol and losartan 50 monitor q 4 Code(s): I10 - ESSENTIAL (PRIMARY) HYPERTENSION Qualifiers: Hypertension type: unspecified Qualified Code(s): I10 - Essential (primary ) hypertension (3) Hyponatremia Assessment/Plan: start on ivf and monitor cmp Code(s): E87.1 - HYPO-OSMOLALITY AND HYPONATREMIA (4) NSTEMI (non-ST elevated myocardial infarction) Assessment/Plan: per cards elevated trops likely secondary to hypertensive state Code(s): I21.4 - NON-ST ELEVATION (NSTEMI) MYOCARDIAL INFARCTION (5) Parkinsons disease Assessment/Plan: on sinemet,follows with dr Junior. Ambulates with cane at home Code(s): G20 - PARKINSON'S DISEASE (6) Diabetes Assessment/Plan: on novolog ss Code(s): E11.9 - TYPE 2 DIABETES MELLITUS WITHOUT COMPLICATIONS (7) Prophylactic measure Assessment/Plan: fen tolerating po monitor electrolytes full code heparin bid Code(s): Z29.9 - ENCOUNTER FOR PROPHYLACTIC MEASURES, UNSPECIFIED Visit type - Emergency Visit Emergency Visit: Yes ED Registration Date: 04/07/19 Care time: The patient presented to the Emergency Department on the above date and was hospitalized for further evaluation of their emergent condition. - New Patient This patient is new to me today: No - Critical Care Critical Care patient: No - Discharge Referral Referred to [facility] Med P.C.: No
--- NOTE | 2019-04-09 19:22 | CONSULT ---
Consult Consult Specialty:: Nephrology Reason for Consultation:: hyponatremia - History of Present Illness Chief Complaint: chest pain History of Present Illness: Pt is a 73 year old female with pmhx of htn, DM, glaucoma, a-fib, parkinsons, and gerd who presents with headaches and elevated bp. She also complained of chest pain. SHe was found to be hyponatremic and I was called to evaluate her. She denies history of hyponatremia. She is not on any diuretics at home. She says that she has felt thirsty and was drinking over 8 glasses of water per day. She denies dysuria or hematuria. SHe follows with Dr Whitaker. 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 Cardio/Vascular: Yes: AFIB, HTN Endocrine: Yes: Diabetes Mellitus - Alcohol/Substance Use Hx Alcohol Use: No - Smoking History Smoking history: Never smoked Have you smoked in the past 12 months: No Home Medications - Allergies Allergies/Adverse Reactions: Allergies Allergy/AdvReac Type Severity Reaction Status Date / Time No Known Allergies Allergy Verified 01/05/19 09:08 - Home Medications Home Medications: Ambulatory Orders Ascorbate Calcium [Vitamin C] 500 mg PO DAILY 01/05/19 Aspirin [Ecotrin] 81 mg PO DAILY 01/05/19 Bimatoprost [Lumigan] 1 drop OD DAILY 01/05/19 Brimonidine Tartrate/Timolol [Combigan 0.2%-0.5% Eye Drops] 5 ml OD BID Calcium Carbonate/Vitamin D3 [Calcium 500 mg-Vit D3 600 Unit] 1,200 mcg PO DAILY 01/05/19 Carbidopa/Levodopa *Cr* 50/200 [Sinemet *Cr* 50/200 -] 1 combo PO QID 01/05/19 Gabapentin [Neurontin -] 300 mg PO HS 01/05/19 Glipizide [Glucotrol -] 5 mg PO TID 01/05/19 Insulin Detemir [Levemir Flextouch] 10 unit SQ HS 01/05/19 Insulin Lispro [Humalog] 100 unit SQ TID 01/05/19 Metoprolol Succinate 25 mg PO PRN 01/05/19 Multivitamin [Multiple Vitamins] 1 each PO DAILY 01/05/19 [place]-3 Fatty Acids/Fish Oil [Fish Oil 1,000 mg Capsule] 1 each PO DAILY Pramipexole Di-HCl [Pramipexole Dihydrochloride] 0.75 mg PO HS 01/05/19 Pravastatin Sodium 10 mg PO HS 01/05/19 metFORMIN HCL [Metformin HCl ER] 500 mg PO BID 01/05/19 Famotidine [Pepcid -] 40 mg PO DAILY #90 tablet 01/06/19 Famotidine [Pepcid] 40 mg PO DAILY #30 tablet 01/06/19 Losartan Potassium 50 mg PO DAILY 04/08/19 traZODone HCL [Trazodone HCl] 50 mg PO HS 04/08/19 Family Medical History Family History: Denies Review of Systems - Review of Systems Constitutional: reports: No Symptoms Eyes: reports: No Symptoms HENT: reports: No Symptoms Neck: reports: No Symptoms Cardiovascular: reports: Chest Pain, Palpitations Respiratory: reports: No Symptoms Gastrointestinal: reports: No Symptoms Genitourinary: reports: No Symptoms Musculoskeletal: reports: No Symptoms Integumentary: reports: No Symptoms Neurological: reports: No Symptoms Endocrine: reports: No Symptoms Hematology/Lymphatic: reports: No Symptoms Psychiatric: reports: No Symptoms Physical Exam Vital Signs: Vital Signs Temperature 98.6 F 04/09/19 14:00 Pulse Rate 66 04/09/19 14:00 Respiratory Rate 20 04/09/19 14:00 Blood Pressure 150/63 04/09/19 14:00 O2 Sat by Pulse Oximetry (%) 98 04/09/19 09:00 Constitutional: Yes: Calm Eyes: Yes: Conjunctiva Clear HENT: Yes: Atraumatic Neck: Yes: Supple Cardiovascular: Yes: S1, S2 Respiratory: Yes: CTA Bilaterally Gastrointestinal: Yes: Normal Bowel Sounds, Soft Musculoskeletal: Yes: WNL Edema: No Neurological: Yes: Oriented Psychiatric: Yes: Oriented Labs: CBC, BMP 04/09/19 06:13 04/08/19 20:16 Imaging - Results Chest X-ray: Report Reviewed Problem List - Problems (1) Diabetes Code(s): E11.9 - TYPE 2 DIABETES MELLITUS WITHOUT COMPLICATIONS (2) High blood pressure Code(s): I10 - ESSENTIAL (PRIMARY) HYPERTENSION Qualifiers: Hypertension type: unspecified Qualified Code(s): I10 - Essential (primary ) hypertension (3) Hyponatremia Code(s): E87.1 - HYPO-OSMOLALITY AND HYPONATREMIA Assessment/Plan Current Medications Generic Name Dose Route Start Last Admin Trade Name Freq PRN Reason Stop Dose Admin Acetaminophen 650 mg 04/08/19 09:54 04/08/19 16:14 Tylenol - PO 650 mg Q6H PRN Administration HEADACHE Aspirin 81 mg 04/08/19 10:00 04/09/19 10:11 Ecotrin - PO 81 mg DAILY CURT Administration Atorvastatin Calcium 40 mg 04/08/19 00:47 04/08/19 21:27 Lipitor - PO 40 mg HS CURT Administration Carbidopa/Levodopa 1 combo 04/09/19 07:00 04/09/19 18:35 Sinemet *Cr* 50/200 - PO 1 combo 0700,1100,1500,1900 CURT Administration Famotidine 20 mg 04/08/19 21:30 04/09/19 10:12 Pepcid - PO 20 mg DAILY CURT Administration Gabapentin 300 mg 04/08/19 01:15 04/08/19 21:29 Neurontin - PO 300 mg HS CURT Administration Heparin Sodium (Porcine) 5,000 unit 04/08/19 22:00 04/09/19 10:13 Heparin - SQ 5,000 unit BID CURT Administration Sodium Chloride 1,000 mls @ 75 mls/hr 04/08/19 09:45 04/08/19 10:15 Normal Saline - IV 75 mls/hr ASDIR CURT Administration Insulin Aspart 1 vial 04/09/19 18:27 Novolog Vial Sliding Scale - SQ ACHS [facility] Protocol Insulin Detemir 5 units 04/09/19 22:00 Levemir Vial SQ HS CURT Losartan Potassium 50 mg 04/08/19 10:00 04/09/19 10:12 Cozaar - PO 50 mg DAILY CURT Administration Metoprolol Succinate 25 mg 04/07/19 23:45 04/09/19 10:12 Toprol Xl - PO 25 mg DAILY CURT Administration Pramipexole Dihydrochloride 0.75 mg 04/08/19 22:00 04/08/19 21:28 Mirapex - PO 0.75 mg HS CURT Administration Laboratory Tests 07/20/10 04/07/19 04/08/19 12:44 18:33 05:42 Sodium 138 128 L 129 L 04/08/19 20:16 Sodium 127 L Impression 1. hyponatremia 2. htn 3. elevated troponin 4. dm 5. a-fib 6. parkinsons Plan - d/c fluids for now - repeat bmp, ordered stat - check urine and plasma osm - urine sg is low - check urine lytes - check tsh - restrict free water intake
[2019-04-09 20:22] LABS: BLOOD UREA NITROGEN 19.4 mg/dL (7-18); CALCIUM 8.9 mg/dL (8.5-10.1); CREATININE 0.8 mg/dL (0.55-1.3); POTASSIUM 4.6 mmol/L (3.5-5.1)
[2019-04-09] MEDS ORDERED: SODIUM CHLORIDE 1 GM TABLET PO ONE (20:41)
[2019-04-09] MEDS: ATORVASTATIN CA 40 MG TABLET (FP) PO SCH (21:36)
[2019-04-09] MEDS: GABAPENTIN 300 MG CAPSULE PO SCH (21:37)
[2019-04-09] MEDS: PRAMIPEXOLE DIHYDROCHLORIDE 0.25 MG TABLET PO SCH (21:52)
[2019-04-09] MEDS ORDERED: INSULIN (LEVEMIR) 100 UNITS/ML UNITS SQ SCH (22:00)
[2019-04-10] MEDS: INSULIN SLIDING SCALE (NOVOLOG) 1 VIAL SQ SCH ×2 (06:11→13:35)
[2019-04-10] MEDS: LOSARTAN POTASSIUM 50 MG TABLET (FP) PO SCH (08:02)
[2019-04-10] MEDS: metoPROLOL SUCCINATE 25 MG TAB.SR.24H (FP) PO SCH (08:03)
[2019-04-10 08:07] LABS: HEMATOCRIT 37.1 % (32.4-45.2); HEMOGLOBIN 12.6 GM/dL (10.7-15.3); MCH 28.5 pg (25.7-33.7); MEAN PLT VOLUME 8.6 fl (7.5-11.1); PLATELET COUNT 236 K/MM3 (134-434); RBC 4.42 M/mm3 (3.60-5.2); RDW 13.1 % (11.6-15.6); WHITE BLOOD COUNT 6.7 K/mm3 (4.0-10.0)
[2019-04-10 08:38] LABS: ALBUMIN 3.6 g/dl (3.4-5.0); BILIRUBIN,TOTAL 0.6 mg/dL (0.2-1); BLOOD UREA NITROGEN 12.4 mg/dL (7-18); CALCIUM 9.4 mg/dL (8.5-10.1); CREATININE 0.6 mg/dL (0.55-1.3); MAGNESIUM 1.5 mg/dL (1.8-2.4); POTASSIUM 4.8 mmol/L (3.5-5.1); TOT PROT 6.6 g/dl (6.4-8.2)
[2019-04-10] MEDS ORDERED: MAGNESIUM SULF 50% (8.12 MEQ/2 ML-1 GM VIAL) IVPB ONE (08:41)
[2019-04-10] MEDS ORDERED: REGADENOSON 0.4 MG/5 ML PRE-FILLED SYRINGE IVPUSH ONE ×2 (09:40→09:45)
--- NOTE | 2019-04-10 10:37 | ECHO ---
Name: CELESTE CHAVEZMMA Exam:Adult Echocardiogram Study Date: 04/10/2019 08:35 AM Age: 73 yrs Reason For Study: Check for wall motion abnormalities, chest tightness Height: 58 in Weight: 119 lb BSA: 1.5 m2 MMode/2D Measurements & Calculations IVSd: 0.97 cm Ao root diam: 2.9 cm LVIDd: 3.8 cm LA dimension: 3.4 cm LVIDs: 2.6 cm ACS: 1.7 cm LVPWd: 0.94 cm EDV(Teich): 62.9 ml LVOT diam: 1.8 cm ESV(Teich): 23.6 ml LAV (MOD-bp): 53.0 ml TAPSE: 1.7 cm RV S Chu: 9.7 cm/sec Doppler Measurements & Calculations MV E max chu: 86.6 cm/sec Ao V2 max: 116.7 cm/sec MV A max chu: 114.6 cm/sec Ao max P.5 mmHg MV E/A: 0.76 Ao V2 mean: 75.8 cm/sec MV dec time: 0.21 sec Ao mean P.7 mmHg Ao V2 VTI: 27.2 cm KAMRYN(I,D): 1.9 cm2 KAMRYN(V,D): 1.9 cm2 LV V1 max P.1 mmHg SV(LVOT): 52.0 ml LV V1 mean P.4 mmHg LV V1 max: 88.3 cm/sec LV V1 mean: 55.2 cm/sec LV V1 VTI: 21.0 cm TR max chu: 191.8 cm/sec PA V2 max: 82.8 cm/sec TR max P.2 mmHg PA max P.7 mmHg PI end-d chu: 62.4 cm/sec Med Peak E' Chu: 4.5 cm/sec Med E/e': 19.3 Lat Peak E' Chu: 5.7 cm/sec Lat E/e': 15.3 Pulm Sys Chu: 48.8 cm/sec Pulm Milton Chu: 29.1 cm/sec Pulm S/D: 1.7 Procedure Study Quality: Fair. Left Ventricle The left ventricular size, thickness and function are normal. The left ventricular ejection fraction is normal. Ejection Fraction = 55-60%. A full diastolic examination was done with clinical findings of C lass I diastolic dysfunction. The left ventricular wall motion is normal. Right Ventricle The right ventricle is normal in size and function. Atria The left atrium is mildly dilated. Right atrial size is normal. Mitral Valve The mitral valve is grossly normal. There is trace mitral regurgitation. Tricuspid Valve The tricuspid valve is not well visualized, but is grossly normal. There is mild tricuspid regurgitat ion. Right ventricular systolic pressure is normal. Aortic Valve There is mild aortic valve thickening. No hemodynamically significant valvular aortic stenosis. No ao rtic regurgitation is present. Pulmonic Valve The pulmonic valve is not well visualized. Great Vessels The aortic root is normal size. Pericardium/Pleura There is no pericardial effusion. Interpretation Summary LV: Normal size.Normal systolic function with EF 55-60%.Impaired relaxation RV: Normal Mild tricuspid regurgitation with normal RVSP Sclerotic aortic valve with normal function. Cristiana Min 04/10/2019 10:36 AM
--- NOTE | 2019-04-10 11:22 | PN ---
Physical Exam: SUBJECTIVE: Patient seen and examined OBJECTIVE: Vital Signs Period Temp Pulse Resp BP Sys/Milton Pulse Ox Last 24 Hr 97.2 F-98.6 F 63-77 18-20 138-165/58-80 99 GENERAL: The patient is awake, alert, and fully oriented, in no acute distress. HEAD: Normal with no signs of trauma. EYES: PERRL, extraocular movements intact, sclera anicteric, conjunctiva clear. No ptosis. ENT: Ears normal, nares patent, oropharynx clear without exudates, moist mucous membranes. NECK: Trachea midline, full range of motion, supple. LUNGS: Breath sounds equal, clear to auscultation bilaterally, no wheezes, no crackles, no accessory muscle use. HEART: Regular rate and rhythm, S1, S2 without murmur, rub or gallop. ABDOMEN: Soft, nontender, nondistended, normoactive bowel sounds, no guarding, no rebound, no hepatosplenomegaly, no masses. EXTREMITIES: 2+ pulses, warm, well-perfused, no edema. NEUROLOGICAL: Cranial nerves II through XII grossly intact. Normal speech, gait not observed. PSYCH: Normal mood, normal affect. SKIN: Warm, dry, normal turgor, no rashes or lesions noted Laboratory Results - last 24 hr 04/09/19 04/09/19 04/09/19 12:01 17:37 19:45 WBC RBC Hgb Hct MCV MCH MCHC RDW Plt Count MPV PTT (Actin FS) Sodium 129 L Potassium 4.6 Chloride 95 L Carbon Dioxide 25 Anion Gap 9 BUN 19.4 H Creatinine 0.8 Est GFR (CKD-EPI)AfAm 85.37 Est GFR (CKD-EPI)NonAf 73.65 POC Glucometer 247 250 Random Glucose 236 H Serum Osmolality Calcium 8.9 Magnesium Total Bilirubin AST ALT Alkaline Phosphatase Total Protein Albumin TSH 04/09/19 04/10/19 04/10/19 21:41 05:55 05:55 WBC 6.7 RBC 4.42 Hgb 12.6 Hct 37.1 MCV 84.0 MCH 28.5 MCHC 34.0 RDW 13.1 Plt Count 236 MPV 8.6 PTT (Actin FS) 36.9 H Sodium Potassium Chloride Carbon Dioxide Anion Gap BUN Creatinine Est GFR (CKD-EPI)AfAm Est GFR (CKD-EPI)NonAf POC Glucometer 230 Random Glucose Serum Osmolality Calcium Magnesium Total Bilirubin AST ALT Alkaline Phosphatase Total Protein Albumin TSH 04/10/19 04/10/19 05:55 06:10 WBC RBC Hgb Hct MCV MCH MCHC RDW Plt Count MPV PTT (Actin FS) Sodium 135 L Potassium 4.8 Chloride 98 Carbon Dioxide 32 Anion Gap 5 L BUN 12.4 Creatinine 0.6 Est GFR (CKD-EPI)AfAm 105.54 Est GFR (CKD-EPI)NonAf 91.06 POC Glucometer 145 Random Glucose 155 H Serum Osmolality 290 Calcium 9.4 Magnesium 1.5 L Total Bilirubin 0.6 AST 19 ALT 15 Alkaline Phosphatase 72 Total Protein 6.6 Albumin 3.6 TSH 3.23 Active Medications Generic Name Dose Route Start Last Admin Trade Name Freq PRN Reason Stop Dose Admin Acetaminophen 650 mg 04/08/19 09:54 04/08/19 16:14 Tylenol - PO 650 mg Q6H PRN Administration HEADACHE Aspirin 81 mg 04/08/19 10:00 04/09/19 10:11 Ecotrin - PO 81 mg DAILY CURT Administration Atorvastatin Calcium 40 mg 04/08/19 00:47 04/09/19 21:36 Lipitor - PO 40 mg HS CURT Administration Carbidopa/Levodopa 1 combo 04/09/19 07:00 04/10/19 06:11 Sinemet *Cr* 50/200 - PO 1 combo 0700,1100,1500,1900 CURT Administration Famotidine 20 mg 04/08/19 21:30 04/09/19 10:12 Pepcid - PO 20 mg DAILY CURT Administration Gabapentin 300 mg 04/08/19 01:15 04/09/19 21:37 Neurontin - PO 300 mg HS CURT Administration Heparin Sodium (Porcine) 5,000 unit 04/08/19 22:00 04/09/19 21:36 Heparin - SQ 5,000 unit BID CURT Administration Insulin Aspart 1 vial 04/09/19 18:27 04/10/19 06:11 Novolog Vial Sliding Scale - SQ Not Given ACHS [facility] Protocol Insulin Detemir 5 units 04/09/19 22:00 04/09/19 21:42 Levemir Vial SQ Not Given HS CURT Losartan Potassium 50 mg 04/08/19 10:00 04/10/19 08:02 Cozaar - PO 50 mg DAILY CURT Administration Metoprolol Succinate 25 mg 04/07/19 23:45 02/10/20 08:03 Toprol Xl - PO 25 mg DAILY CURT Administration Pramipexole Dihydrochloride 0.75 mg 04/08/19 22:00 04/09/19 21:52 Mirapex - PO 0.75 mg HS CURT Administration ASSESSMENT/PLAN: Problem List - Problems (1) Troponin I above reference range Code(s): R79.89 - OTHER SPECIFIED ABNORMAL FINDINGS OF BLOOD CHEMISTRY (2) High blood pressure Code(s): I10 - ESSENTIAL (PRIMARY) HYPERTENSION Qualifiers: Hypertension type: unspecified Qualified Code(s): I10 - Essential (primary ) hypertension (3) Hyponatremia Code(s): E87.1 - HYPO-OSMOLALITY AND HYPONATREMIA (4) NSTEMI (non-ST elevated myocardial infarction) Code(s): I21.4 - NON-ST ELEVATION (NSTEMI) MYOCARDIAL INFARCTION (5) Parkinsons disease Code(s): G20 - PARKINSON'S DISEASE (6) Diabetes Code(s): E11.9 - TYPE 2 DIABETES MELLITUS WITHOUT COMPLICATIONS (7) Prophylactic measure Code(s): Z29.9 - ENCOUNTER FOR PROPHYLACTIC MEASURES, UNSPECIFIED
[2019-04-10] MEDS: ASPIRIN COATED 81 MG TABLET.EC PO SCH (12:12)
[2019-04-10] MEDS: HEPARIN NA (PORCINE) 5,000 UNITS/ML 1ML VIAL SQ SCH (12:13)
[2019-04-10] MEDS: FAMOTIDINE 20 MG TABLET PO SCH (12:13)
[2019-04-10] MEDS ORDERED: MAGNESIUM OXIDE 400 MG TABLET (FP) PO ONE (14:20)
--- NOTE | 2019-04-10 14:54 | PN ---
Progress Note, Physician History of Present Illness: Pt seen and examined at bedside. She is awake and alert. She had the stress test today. - Current Medication List Current Medications: Active Medications Acetaminophen (Tylenol -) 650 mg PO Q6H PRN PRN Reason: HEADACHE Last Admin: 04/08/19 16:14 Dose: 650 mg Aspirin (Ecotrin -) 81 mg PO DAILY [facility] Last Admin: 04/10/19 12:12 Dose: 81 mg Atorvastatin Calcium (Lipitor -) 40 mg PO [facility] Last Admin: 04/09/19 21:36 Dose: 40 mg Carbidopa/Levodopa (Sinemet *Cr* 50/200 -) 1 combo PO 0700,1100,1500,1900 [facility] Last Admin: 04/10/19 13:50 Dose: 1 combo Famotidine (Pepcid -) 20 mg PO DAILY [facility] Last Admin: 04/10/19 12:13 Dose: 20 mg Gabapentin (Neurontin -) 300 mg PO [facility] Last Admin: 04/09/19 21:37 Dose: 300 mg Heparin Sodium (Porcine) (Heparin -) 5,000 unit SQ BID [facility] Last Admin: 04/10/19 12:13 Dose: 5,000 unit Insulin Aspart (Novolog Vial Sliding Scale -) 1 vial SQ [facility]; Protocol Last Admin: 04/10/19 13:35 Dose: 6 units Insulin Detemir (Levemir Vial) 5 units SQ [facility] Last Admin: 04/09/19 21:42 Dose: Not Given Losartan Potassium (Cozaar -) 50 mg PO DAILY [facility] Last Admin: 04/10/19 08:02 Dose: 50 mg Metoprolol Succinate (Toprol Xl -) 25 mg PO DAILY [facility] Last Admin: 04/10/19 08:03 Dose: 25 mg Pramipexole Dihydrochloride (Mirapex -) 0.75 mg PO [facility] Last Admin: 04/09/19 21:52 Dose: 0.75 mg - Objective Vital Signs: Vital Signs Temperature 97.6 F 04/10/19 08:00 Pulse Rate 68 04/10/19 08:00 Respiratory Rate 18 04/10/19 08:00 Blood Pressure 144/62 04/10/19 08:00 O2 Sat by Pulse Oximetry (%) 99 04/09/19 21:00 Constitutional: Yes: Calm Eyes: Yes: Conjunctiva Clear HENT: Yes: Atraumatic Neck: Yes: Supple Cardiovascular: Yes: S1, S2 Respiratory: Yes: CTA Bilaterally Gastrointestinal: Yes: Soft Genitourinary: Yes: WNL Musculoskeletal: Yes: WNL Edema: No Neurological: Yes: Oriented Psychiatric: Yes: Oriented Labs: CBC, BMP 04/10/19 05:55 04/10/19 05:55 INR, PTT INR 1.08 (0.83-1.09) 04/07/19 20:20 Problem List - Problems (1) Diabetes Code(s): E11.9 - TYPE 2 DIABETES MELLITUS WITHOUT COMPLICATIONS (2) High blood pressure Code(s): I10 - ESSENTIAL (PRIMARY) HYPERTENSION Qualifiers: Hypertension type: unspecified Qualified Code(s): I10 - Essential (primary ) hypertension (3) Hyponatremia Code(s): E87.1 - HYPO-OSMOLALITY AND HYPONATREMIA Assessment/Plan Current Medications Generic Name Dose Route Start Last Admin Trade Name Freq PRN Reason Stop Dose Admin Acetaminophen 650 mg 04/08/19 09:54 04/08/19 16:14 Tylenol - PO 650 mg Q6H PRN Administration HEADACHE Aspirin 81 mg 04/08/19 10:00 04/10/19 12:12 Ecotrin - PO 81 mg DAILY [facility]T Administration Atorvastatin Calcium 40 mg 04/08/19 00:47 04/09/19 21:36 Lipitor - PO 40 mg HS CURT Administration Carbidopa/Levodopa 1 combo 04/09/19 07:00 04/10/19 13:50 Sinemet *Cr* 50/200 - PO 1 combo 0700,1100,1500,1900 [facility]T Administration Famotidine 20 mg 04/08/19 21:30 04/10/19 12:13 Pepcid - PO 20 mg DAILY CURT Administration Gabapentin 300 mg 04/08/19 01:15 04/09/19 21:37 Neurontin - PO 300 mg HS CURT Administration Heparin Sodium (Porcine) 5,000 unit 04/08/19 22:00 04/10/19 12:13 Heparin - SQ 5,000 unit BID CURT Administration Insulin Aspart 1 vial 04/09/19 18:27 04/10/19 13:35 Novolog Vial Sliding Scale - SQ 6 units ACHS [facility]T Administration Protocol Insulin Detemir 5 units 04/09/19 22:00 04/09/19 21:42 Levemir Vial SQ Not Given HS CURT Losartan Potassium 50 mg 04/08/19 10:00 04/10/19 08:02 Cozaar - PO 50 mg DAILY CURT Administration Metoprolol Succinate 25 mg 04/07/19 23:45 04/10/19 08:03 Toprol Xl - PO 25 mg DAILY CURT Administration Pramipexole Dihydrochloride 0.75 mg 04/08/19 22:00 04/09/19 21:52 Mirapex - PO 0.75 mg HS CURT Administration Impression 1. hyponatremia 2. htn 3. elevated troponin 4. dm 5. a-fib 6. parkinsons Plan - sodium improved - can see in office - restrict free water - discussed with cardio - discussed with medical team
[2019-04-10 15:33] VITALS: BP 155/74; PULSE 73; TEMP 98.2
--- NOTE | 2019-04-10 15:50 | PN ---
Progress Note (short form) - Note Progress Note: s: no chest pain, palps, dizziness, dyspnea Current Medications Acetaminophen (Tylenol -) 650 mg PO Q6H PRN PRN Reason: HEADACHE Last Admin: 04/08/19 16:14 Dose: 650 mg Aspirin (Ecotrin -) 81 mg PO DAILY [facility] Last Admin: 04/10/19 12:12 Dose: 81 mg Atorvastatin Calcium (Lipitor -) 40 mg PO [facility] Last Admin: 04/09/19 21:36 Dose: 40 mg Carbidopa/Levodopa (Sinemet *Cr* 50/200 -) 1 combo PO 0700,1100,1500,1900 [facility] Last Admin: 04/10/19 13:50 Dose: 1 combo Famotidine (Pepcid -) 20 mg PO DAILY [facility] Last Admin: 04/10/19 12:13 Dose: 20 mg Gabapentin (Neurontin -) 300 mg PO [facility] Last Admin: 04/09/19 21:37 Dose: 300 mg Heparin Sodium (Porcine) (Heparin -) 5,000 unit SQ BID [facility] Last Admin: 04/10/19 12:13 Dose: 5,000 unit Insulin Aspart (Novolog Vial Sliding Scale -) 1 vial SQ [facility]; Protocol Last Admin: 04/10/19 13:35 Dose: 6 units Insulin Detemir (Levemir Vial) 5 units SQ [facility] Last Admin: 04/09/19 21:42 Dose: Not Given Losartan Potassium (Cozaar -) 50 mg PO DAILY [facility] Last Admin: 04/10/19 08:02 Dose: 50 mg Metoprolol Succinate (Toprol Xl -) 25 mg PO DAILY [facility] Last Admin: 04/10/19 08:03 Dose: 25 mg Pramipexole Dihydrochloride (Mirapex -) 0.75 mg PO [facility] Last Admin: 04/09/19 21:52 Dose: 0.75 mg Vital Signs Period Temp Pulse Resp BP Sys/Milton Pulse Ox Last 24 Hr 97.2 F-98.6 F 63-77 18-20 138-165/58-80 99 Constitutional: Yes: No Distress, Calm Cardiovascular: Yes: Regular Rate and Rhythm Respiratory: Yes: CTA Bilaterally Edema: No soft, nt, nd +bs aox3 not agitated no jaundice, diaphoresis tele: sinus Assessment/Plan 1) (+) troponin -Flat trend and now down trending -No active chest pain this AM but belching last night ?GI -Had normal stress echo in 09/2015 -Etiology likely a Type II MT in the setting of Hypertensive state and not ACS - mibi no ischemia here -Continue Asa and pravachol -Continue Metoprolol -no further cardiac testing at this point 2) HTN -Better controlled this AM -Continue meoprolol and losartan at 50mg daily -Monitor BP - note at home pt takes medications sporadically and checks BP several times a day, often taking meds differently from prescribed - cont current meds for now 3) DM -Management as per PMD 4) palpitations - no history of afib - reportedly tracings here did not show afib - she has a history of palps and feeling irregular heart beat for which she takes PRN metoprolol - defer AC at this point stable for dc from cardiac perspective
--- NOTE | 2019-04-10 17:19 | DS ---
Physical Exam: SUBJECTIVE: Patient seen and examined at the bedside. in no acute distress. OBJECTIVE: Patient is a 73 year old female with a significant past medical history of hypertension, diabetes, glaucoma, parkinson's, a.fib (not on AC), GERD. She presents to the ED on 04/07/2019 with symptom of chest tightness, headaches and elevated BP 199/85. At home she experienced severe, non-radiating chest tightness, headaches and palpitations, which are now resolved. She follows with Dr. Trejo. She had elevated troponins and placed on a heparin drip, heparin drip now discontinued. Patient admitted for chest tightness, hypertension and elevated troponins. Chest tightness now resolved. She is currently comfortable at rest and denies any further chest pain. She reports that she monitors her BP at home and at times she is hypotensive. 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 Discussed with Dr. Trejo. Vital Signs Period Temp Pulse Resp BP Sys/[place] Pulse Ox Last 24 Hr 97.2 F-98.6 F 63-77 18-20 138-165/58-80 99-99 PHYSICAL EXAM GENERAL: The patient is awake, alert, and fully oriented, in no acute distress. HEAD: Normal with no signs of trauma. EYES: PERRL, extraocular movements intact, sclera anicteric, conjunctiva clear. No ptosis. ENT: Ears normal, nares patent, oropharynx clear without exudates, moist mucous membranes. NECK: Trachea midline, full range of motion, supple. LUNGS: Breath sounds equal, clear to auscultation bilaterally HEART: Regular rate and rhythm ABDOMEN: Soft, nontender, nondistended, normoactive bowel sounds, no guarding EXTREMITIES: no edema. NEUROLOGICAL: Normal speech, gait not observed. PSYCH: Normal mood, normal affect. SKIN: Warm, dry, normal turgor, no rashes or lesions noted LABS Laboratory Results - last 24 hr 04/09/19 04/09/19 04/09/19 17:37 19:45 21:41 WBC RBC Hgb Hct MCV MCH MCHC RDW Plt Count MPV PTT (Actin FS) Sodium 129 L Potassium 4.6 Chloride 95 L Carbon Dioxide 25 Anion Gap 9 BUN 19.4 H Creatinine 0.8 Est GFR (CKD-EPI)AfAm 85.37 Est GFR (CKD-EPI)NonAf 73.65 POC Glucometer 250 230 Random Glucose 236 H Serum Osmolality Calcium 8.9 Magnesium Total Bilirubin AST ALT Alkaline Phosphatase Total Protein Albumin TSH 04/10/19 04/10/19 04/10/19 05:55 05:55 05:55 WBC 6.7 RBC 4.42 Hgb 12.6 Hct 37.1 MCV 84.0 MCH 28.5 MCHC 34.0 RDW 13.1 Plt Count 236 MPV 8.6 PTT (Actin FS) 36.9 H Sodium 135 L Potassium 4.8 Chloride 98 Carbon Dioxide 32 Anion Gap 5 L BUN 12.4 Creatinine 0.6 Est GFR (CKD-EPI)AfAm 105.54 Est GFR (CKD-EPI)NonAf 91.06 POC Glucometer Random Glucose 155 H Serum Osmolality 290 Calcium 9.4 Magnesium 1.5 L Total Bilirubin 0.6 AST 19 ALT 15 Alkaline Phosphatase 72 Total Protein 6.6 Albumin 3.6 TSH 3.23 04/10/19 04/10/19 06:10 12:26 WBC RBC Hgb Hct MCV MCH MCHC RDW Plt Count MPV PTT (Actin FS) Sodium Potassium Chloride Carbon Dioxide Anion Gap BUN Creatinine Est GFR (CKD-EPI)AfAm Est GFR (CKD-EPI)NonAf POC Glucometer 145 234 Random Glucose Serum Osmolality Calcium Magnesium Total Bilirubin AST ALT Alkaline Phosphatase Total Protein Albumin TSH HOSPITAL COURSE: Date of Admission:04/07/19 Date of Discharge: 04/10/19 Minutes to complete discharge: 45 Discharge Summary Problems reviewed: Yes Reason For Visit: HYPONATREMIA,NON-ST ELEVATION MYOCARDIAL INFARCTIO Condition: Improved - Instructions Diet, Activity, Other Instructions: Mrs Vo: You were admitted for chest pain and your inpatient cardiac workup is negative. You had a stress test today and it was negative. Dr. Trejo would like to see you in the office for further testing. Continue your home medications and continue to monitor your blood pressure. Thank you for allowing us to care for you. If you have questions, please call me. [facility] @ [facility] [phone] Referrals: Efren Whitaker MD [Primary Care Provider] - Emilee Trejo MD [Staff Physician] - Disposition: HOME - Home Medications Comprehensive Discharge Medication List: Ambulatory Orders Ascorbate Calcium [Vitamin C] 500 mg PO DAILY 01/05/19 Aspirin [Ecotrin] 81 mg PO DAILY 01/05/19 Bimatoprost [Lumigan] 1 drop OD DAILY 01/05/19 Brimonidine Tartrate/Timolol [Combigan 0.2%-0.5% Eye Drops] 5 ml OD BID Calcium Carbonate/Vitamin D3 [Calcium 500 mg-Vit D3 600 Unit] 1,200 mcg PO DAILY 01/05/19 Carbidopa/Levodopa *Cr* 50/200 [Sinemet *Cr* 50/200 -] 1 combo PO QID 01/05/19 Gabapentin [Neurontin -] 300 mg PO HS 01/05/19 Glipizide [Glucotrol -] 5 mg PO TID 01/05/19 Insulin Detemir [Levemir Flextouch] 10 unit SQ HS 01/05/19 Insulin Lispro [Humalog] 100 unit SQ TID 01/05/19 Metoprolol Succinate 25 mg PO PRN 01/05/19 Multivitamin [Multiple Vitamins] 1 each PO DAILY 01/05/19 [place]-3 Fatty Acids/Fish Oil [Fish Oil 1,000 mg Capsule] 1 each PO DAILY Pramipexole Di-HCl [Pramipexole Dihydrochloride] 0.75 mg PO HS 01/05/19 Pravastatin Sodium 10 mg PO HS 01/05/19 metFORMIN HCL [Metformin HCl ER] 500 mg PO BID 01/05/19 Famotidine [Pepcid] 40 mg PO DAILY #30 tablet 01/06/19 Losartan Potassium 50 mg PO DAILY 04/08/19 traZODone HCL [Trazodone HCl] 50 mg PO HS 04/08/19 Metoprolol Succinate 25 mg PO DAILY #60 tab.er.24h 04/10/19 Nitroglycerin Sublingual [Nitrostat -] 0.3 mg SL ONCE #5 btl 04/10/19 Problem List - Problems (1) Troponin I above reference range Assessment/Plan: Troponins flat trending, no chest pain or shortness of breath on exam. tolerating room air. stable for d/c home per cardiology Code(s): R79.89 - OTHER SPECIFIED ABNORMAL FINDINGS OF BLOOD CHEMISTRY (2) High blood pressure Assessment/Plan: improved Code(s): I10 - ESSENTIAL (PRIMARY) HYPERTENSION Qualifiers: Hypertension type: unspecified Qualified Code(s): I10 - Essential (primary ) hypertension (3) Hyponatremia Assessment/Plan: resolved. patient agrees to see Dr. Rosas as an outpatient. Code(s): E87.1 - HYPO-OSMOLALITY AND HYPONATREMIA (4) NSTEMI (non-ST elevated myocardial infarction) Code(s): I21.4 - NON-ST ELEVATION (NSTEMI) MYOCARDIAL INFARCTION (5) Parkinsons disease Assessment/Plan: on sinemet,follows with dr Junior. Ambulates with cane at home Code(s): G20 - PARKINSON'S DISEASE (6) Diabetes Assessment/Plan: continue home meds Code(s): E11.9 - TYPE 2 DIABETES MELLITUS WITHOUT COMPLICATIONS (7) Prophylactic measure Assessment/Plan: discharge home Code(s): Z29.9 - ENCOUNTER FOR PROPHYLACTIC MEASURES, UNSPECIFIED This patient is new to me today: No Emergency Visit: Yes ED Registration Date: 04/07/19 Care time: The patient presented to the Emergency Department on the above date and was hospitalized for further evaluation of their emergent condition. Critical Care patient: No - Discharge Referral Referred to [facility] No
== END 2019-04-10 17:16 | disposition home or self-care (01) | DRG 281 ==
LOC: JER 17:27 → JERBED 23:39 → J4W 04-08 02:18
PROVIDERS: ADMIT Internal Medicine; ATTEND Nurse Practitioner Family
DX: I21.A1 Myocardial infarction type 2 (principal); E87.1 Hypo-osmolality and hyponatremia; E11.9 Type 2 diabetes mellitus without complications; I10 Essential (primary) hypertension; I48.91 Unspecified atrial fibrillation; K21.9 Gastro-esophageal reflux disease without esophagitis; H40.9 Unspecified glaucoma; G20 Parkinson's disease; G62.9 Polyneuropathy, unspecified; R79.89 Other specified abnormal findings of blood chemistry; E78.00 Pure hypercholesterolemia, unspecified; E01.0 Iodine-deficiency related diffuse (endemic) goiter; Z29.9 Encounter for prophylactic measures, unspecified
CPT/HCPCS: 36415; 71046-TC-FY; 78452-TC; 80048; 80053; 80061; 81003; 82272; 82533; 82550; 82962; 83036; 83721; 83735; 83880; 83930; 84100; 84443; 84484; 85025; 85027; 85610; 85730; 93005; 93010; 93017; 93306-TC; 99285-25; A9502; J1644; J2785; J7030